=== PATIENT | female | born 1950 | race Two or more races ===

== ENCOUNTER 2018-02-22 18:29 | Emergency (ER) | payer MEDICARE, MEDICAID ==
[~2018-02-22] VITALS: Ht 167.6 cm; Wt 80.0 kg
[2018-02-22 19:29] LABS: EOSINOPHILS % 5.2 % (0.0-5.0); HEMATOCRIT. 39.7 % (36.0-48.0); HEMOGLOBIN. 13.5 g/dL (12.0-16.0); MEAN CORPUSCULAR HEMOGLOBIN 29.7 pg (28.0-32.0); MEAN CORPUSCULAR VOLUME 87.1 fL (81.0-99.0); MEAN PLATELET VOLUME 8.3 fl (7.4-10.4); MONOCYTES % 6.5 % (2.0-8.0); NEUTROPHILS % 60.3 % (40.0-76.0); PLATELET 168 x1000/uL (130-400); RED BLOOD CELL COUNT 4.56 mill/uL (4.2-5.4); RED CELL DISTRIBUTION WIDTH 13.8 % (11.6-14.6)
[2018-02-22 19:32] LABS: CHLORIDE 106 mEq/L (98-107)
[2018-02-22 20:06] LABS: CLARITY URINE CLEAR (CLEAR); COLOR URINE YELLOW (YELLOW); KETONES URINE NEGATIVE (NEGATIVE); LEUKOCYTE ESTERASE URINE NEGATIVE (NEGATIVE); NITRITE URINE NEGATIVE (NEGATIVE); OCCULT BLOOD URINE TRACE (NEGATIVE); PROTEIN URINE NEGATIVE (NEGATIVE); SPECIFIC GRAVITY URINE 1.026 (1.005-1.030); UROBILINOGEN URINE 0.2 E.U./dL (0.2-1.0)
[2018-02-22 20:40] VITALS: BP 118/70
== END 2018-02-22 20:40 | disposition home or self-care (01) ==
LOC: ER 18:29
DX: R07.89 Other chest pain (principal); R50.9 Fever, unspecified; Z91.040 Latex allergy status
CPT/HCPCS: 36415; 71045; 84484; 87804; 93005; 99284